=== PATIENT | female | born 1955 | race Caucasian/White ===

== ENCOUNTER 2019-01-21 13:54 | Emergency (ER) | payer BC ==
[~2019-01-21] VITALS: Ht 157.5 cm; Wt 62.6 kg
--- NOTE | 2019-01-21 13:58 | NUR ---
Irma murphy in [facility] - 01/21/19 at 1639 by [email or web address] MD AT BEDSIDE.
[2019-01-21] MEDS ORDERED: NACL 0.9% 1,000 ML IV ONE (13:59)
--- NOTE | 2019-01-21 13:59 | NUR ---
Patient to ER bed 5 to gown for evaluation. Side rails up. Report given to Keven FLOWER.
[2019-01-21 14:00] VITALS: BP_SYST 138
[2019-01-21] MEDS ORDERED: ONDANSETRON HCL 4 MG/2 ML VIAL IVP ONE (14:00)
[2019-01-21] MEDS ORDERED: KETOROLAC TROMETHAMINE 30 MG VIAL IVP ONE (14:00)
--- NOTE | 2019-01-21 14:01 | NUR ---
PATIENT REFUSED MEDICATION. PATIENT STATED "I CANT HAVE ANY MEDICATION BECAUSE IM ".
--- NOTE | 2019-01-21 14:10 | NUR ---
RECEIVED PATIENT REPORT FROM CHARGE NURSE BELLE. PATIENT IN ER BED 5. PATIENT IS AAOX4. PATIENT IS VERBALLY RESPONSIVE. PATIENT STATED THAT THE REASON WHY SHE CAME INTO THE ER IS BECAUSE "I WAS HAVING CONTRACTIONS. I AM WAY PASS DUE ON MY DUE DATE." PATIENT DENIES ANY PAST MEDICAL HISTORY. NO KNOWN ALLERGIES. CONTINUE TO MONITOR.
[2019-01-21 14:19] LABS: BASOPHILS % (AUTO) 0.5 % (0.0-2.0); EOSINOPHILS # (AUTO) 0.1 K/uL (0.0-0.4); EOSINOPHILS % (AUTO) 0.8 % (0.0-4.0); HEMATOCRIT 38.1 % (36-48); HEMOGLOBIN 12.9 g/dL (12.0-16.0); LYMPHOCYTES # (AUTO) 1.6 K/uL (1.0-5.5); LYMPHOCYTES % (AUTO) 24.4 % (20.5-51.5); MEAN CORPUSCULAR HEMOGLOBIN 29 pg (27-31); MEAN CORPUSCULAR HGB CONC 34 % (32-36); MEAN CORPUSCULAR VOLUME 85 fL (79.0-98.0); MONOCYTES # (AUTO) 0.5 K/uL (0.0-1.0); MONOCYTES % (AUTO) 7.7 % (1.7-9.3); NEUTROPHILS # (AUTO) 4.4 K/uL (1.8-7.7); NEUTROPHILS % (AUTO) 66.6 % (40.0-70.0); PLATELET COUNT (AUTO) 315 K/uL (130-430); RED BLOOD CELL COUNT(AUTO) 4.48 MIL/uL (4.2-6.2); RED CELL DISTRIBUTION WIDTH 13.6 % (9.0-15.0); WHITE BLOOD COUNT (AUTO) 6.7 K/uL (4.8-10.8)
[2019-01-21 14:31] LABS: CREATININE 0.63 mg/dL (0.55-1.30); POTASSIUM 3.9 mmol/L (3.5-5.1)
[2019-01-21 14:36] LABS: ALBUMIN 3.5 g/dL (3.4-4.8); TOTAL BILIRUBIN 0.8 mg/dL (0.0-1.0)
[2019-01-21 14:58] LABS: BILIRUBIN,URINE NEGATIVE (NEGATIVE); BLOOD, URINE NEGATIVE (NEGATIVE); CLARITY/URINE CLEAR (CLEAR); COLOR,URINE YELLOW (YELLOW); GLUCOSE,URINE 3+ (NEGATIVE); KETONES,URINE NEGATIVE (NEGATIVE); LEUKOCYTE ESTERASE ,URINE NEGATIVE (NEGATIVE); NITRITE, URINE NEGATIVE (NEGATIVE); PROTEIN URINE NEGATIVE (NEGATIVE); UROBILINOGEN,URINE 0.2 (0.2-1.0)
--- NOTE | 2019-01-21 16:02 | NUR ---
Late entry IVF were discontinued at this time. Addendum: 02/14/19 at 1118 by SDEDSTC IVF d/c's @ 1129
--- NOTE | 2019-01-21 16:02 | NUR ---
Patient elected to leave the ER without having formal arrangements for homeless alf in place. Patient wished to get her cat from the [facility] before they took it to a alf. I attempted to arrange for her to go to a alf by calling: [facility], [facility], [facility], [facility], [facility], [facility], [facility]; none of the facilities picked up the phone or have information stating that they will accept the patient blindly. Patient did not wait for clothing, food, or taxi however she stated that she would be outside with her cat. Addendum: 01/21/19 at 1613 by RESHMA IV DC with cath intact.
== END 2019-01-21 16:10 | disposition home or self-care (01) ==
LOC: SED 13:54
DX: K29.70 Gastritis, unspecified, without bleeding (principal); R73.9 Hyperglycemia, unspecified; R03.0 Elevated blood-pressure reading, without diagnosis of hypertension; Z86.59 Personal history of other mental and behavioral disorders
CPT/HCPCS: 36415; 80053; 81003; 81025; 82150; 83690; 85025; 96360; 99283; J7030

== ENCOUNTER 2019-08-26 11:29 | Emergency (ER) | payer BC ==
[~2019-08-26] VITALS: Ht 152.4 cm; Wt 74.8 kg
[2019-08-26 11:29] VITALS: BP_SYST 153
--- NOTE | 2019-08-26 11:50 | NUR ---
Patient to ER bed 4 to gown for evaluation. Side rails up. Report given to MUNDO Salgado.
--- NOTE | 2019-08-26 12:00 | NUR ---
ER at bedside examining patient.
--- NOTE | 2019-08-26 12:40 | NUR ---
Patient taken to ultrasound via wheelchair.
--- NOTE | 2019-08-26 13:03 | NUR ---
Patient urine collected, urine dip performed. Patient has urine glucose of >1000mg/dl. MD Real made aware. Went to ultrasound for exam. Finger stick blood sugar refused by patient. MD aware. While in ultrasound, patient was arguing with spd tech stating she was not ultrasounding up high enough on abdomen, that her babies are in the upper quadrants of abdomen, and she has been over one year. Patient getting increasingly agitated and refusing transvaginal ultrasound. Patient keeps repeating that she has multiple babies and they are higher. "I will go to a stave log cut off saw operator to find out about my ."
[2019-08-26 13:31] VITALS: BP_SYST 153
[2019-08-26 13:35] LABS: BILIRUBIN,URINE NEGATIVE (NEGATIVE); BLOOD, URINE NEGATIVE (NEGATIVE); CLARITY/URINE CLEAR (CLEAR); COLOR,URINE YELLOW (YELLOW); GLUCOSE,URINE 3+ (NEGATIVE); KETONES,URINE NEGATIVE (NEGATIVE); LEUKOCYTE ESTERASE ,URINE NEGATIVE (NEGATIVE); NITRITE, URINE NEGATIVE (NEGATIVE); PROTEIN URINE TRACE (NEGATIVE); UROBILINOGEN,URINE 0.2 (0.2-1.0)
[2019-08-26 13:55] LABS: BACTERIA,URINE RARE /HPF (None Seen); MUCUS,URINE 1+ /LPF (None Seen); RBC,URINE 0-3 /HPF (0-3); WBC,URINE 0-3 /HPF (0-3)
--- NOTE | 2019-08-29 13:31 | NUR ---
Patient given written and verbal discharge instructions and verbalizes understanding. ER MD discussed with patient the results and treatment provided. Patient in stable condition. ID arm band removed. NO Rx given. Patient educated on pain management and to follow up with PMD. Pain Scale 0. Opportunity for questions provided and answered. Medication side effect fact sheet provided.
== END 2019-08-26 13:31 | disposition still patient (30) ==
LOC: SED 11:29
DX: E11.9 Type 2 diabetes mellitus without complications (principal); Z32.02 Encounter for pregnancy test, result negative
CPT/HCPCS: 36415; 76801; 76817; 81000-TC; 81025; 84703; 99284

== ENCOUNTER 2021-03-22 23:44 | Emergency (ER) | payer BC ==
[~2021-03-22] VITALS: Ht 157.5 cm; Wt 74.8 kg
[2021-03-22 23:44] VITALS: BP_SYST 214
--- NOTE | 2021-03-22 23:44 | NUR ---
Received patient to ER via BLS ambulance w/ c/o low back pain. patient denies any pmh but is ranting that she is 3 years and that on [place] she is 45 years old. Patient resting quietly. No acute distress noted. Vital signs are not within normal range. Pupils equal and reactive to light bilaterally. No facial droop noted. No smile deficit noted. Speech normal for patient. Patient is alert and oriented to person, place, time. Bilateral hand ink blender equal. Bilateral foot push equal.
[2021-03-23] MEDS ORDERED: LORazepam 2 MG/ML VIAL IM ONE (00:45)
[2021-03-23] MEDS ORDERED: HALOPERIDOL LACTATE 5 MG/ML VIAL IM ONE (00:45)
[2021-03-23 01:07] LABS: BILIRUBIN,URINE NEGATIVE (NEGATIVE); CLARITY/URINE CLEAR (CLEAR); COLOR,URINE YELLOW (YELLOW); GLUCOSE,URINE 3+ (NEGATIVE); KETONES,URINE NEGATIVE (NEGATIVE); LEUKOCYTE ESTERASE ,URINE NEGATIVE (NEGATIVE); NITRITE, URINE NEGATIVE (NEGATIVE); PROTEIN URINE 2+ (NEGATIVE); UROBILINOGEN,URINE 0.2 (0.2-1.0)
[2021-03-23 01:15] LABS: BLOOD, URINE TRACE (NEGATIVE)
[2021-03-23 01:17] LABS: BACTERIA,URINE MANY /HPF (None Seen)
[2021-03-23 01:19] LABS: BARBITURATE, URINE NEGATIVE (NEG <=200); BENZODIAZEPINE, URINE NEGATIVE (NEG <=150); CANNABINOID, URINE NEGATIVE (NEG <=50); COCAINE, URINE NEGATIVE (NEG <=150); METHAMPHETAMINES SCREEN,URINE NEGATIVE (NEG <=500); OPIATE, URINE NEGATIVE (NEG <=100); PHENCYCLIDINE SCREEN,URINE NEGATIVE (NEG <=25); UR TRICYCLIC ANTIDEPRESSANTS NEGATIVE (NEG <=300); URINE AMPHETAMINE NEGATIVE (NEG <=500); URINE METHADONE NEGATIVE (NEG <=200); URINE OXYCODONE SCREEN NEGATIVE (NEG <=100); URINE PROPOXYPHENE SCREEN NEGATIVE (NEG <=300)
--- NOTE | 2021-03-23 01:26 | NUR ---
Pupils equal and reactive to light bilaterally. No facial droop noted. No smile deficit noted. Speech normal for patient. Patient is alert and oriented to person, place, time. Bilateral hand security expert equal. Bilateral foot push equal. b/p noted at 172/70. Patient is alert/oriented, No SI or HI, has a place to stay, refused Ativan and Haldol medications. patient also refused blood draw. Is only requesting motrin for pain. MD Walker at bedside to speak w/ patient. Ok to hold medications at this time.
[2021-03-23] MEDS ORDERED: CIPROFLOXACIN HCL 500 MG TABLET PO ONE (01:45)
[2021-03-23] MEDS ORDERED: IBUPROFEN 600 MG TABLET PO ONE (01:45)
--- NOTE | 2021-03-23 01:51 | NUR ---
Medicated w/ cipro and ibuprofen per MD orders. Will cont to monitor and observe for any adverse reaction. Bed to low position sr up. continue to monitor.
--- NOTE | 2021-03-23 02:24 | NUR ---
Patient transported to radiology via w/c, accompanied by farm technician.
--- NOTE | 2021-03-23 02:53 | NUR ---
Urine HCG done, results negative lot: [id number]
[2021-03-23] MEDS ORDERED: ACET1TAB23 PO (02:55)
[2021-03-23] MEDS ORDERED: CYCL-10 PO (02:55)
[2021-03-23] MEDS ORDERED: CIPR500T5 PO (02:55)
[2021-03-23 03:11] VITALS: BP_SYST 169
--- NOTE | 2021-03-23 03:11 | NUR ---
Patient given written and verbal discharge instructions and verbalizes understanding. ER MD discussed with patient the results and treatment provided. Patient in stable condition. ID arm band removed. Rx of cipro and flexeril given. Patient educated on pain management and to follow up with PMD. Pain Scale 4. Opportunity for questions provided and answered. Medication side effect fact sheet provided.
== END 2021-03-23 03:11 | disposition home or self-care (01) ==
LOC: SED 23:44
DX: N39.0 Urinary tract infection, site not specified (principal); F28 Other psychotic disorder not due to a substance or known physiological condition; Z79.899 Other long term (current) drug therapy; Z20.822 Contact with and (suspected) exposure to COVID-19
CPT/HCPCS: 36415; 72100; 80307; 81000; 81025; 87086; 87426; 93005; 99285; J1630; J2060

== ENCOUNTER 2022-04-11 20:12 | Emergency (ER) | payer MEDICARE, BC ==
[~2022-04-11] VITALS: Ht 160 cm; Wt 63.5 kg
[~2022-04-11 20:12] MED LIST: CIPR500T5 PO; CYCL10TA24 PO
[2022-04-11 20:17] VITALS: BP_SYST 172
[2022-04-11] MEDS ORDERED: AMOX-423 PO (23:26)
[2022-04-11] MEDS ORDERED: HYDROcodone/ACETAMIN 10-325 MG TAB PO ONE (23:30)
--- NOTE | 2022-04-11 23:39 | NUR ---
Patient given written and verbal discharge instructions and verbalizes understanding. ER MD discussed with patient the results and treatment provided. Patient in stable condition. ID arm band removed. IV catheter removed intact and dressing applied, no active bleeding. Rx of AUGMENTIN given. Patient educated on pain management and to follow up with PMD. Pain Scale . Opportunity for questions provided and answered. Medication side effect fact sheet provided.
== END 2022-04-11 23:38 | disposition home or self-care (01) ==
LOC: SED 20:12
DX: M54.50 Low back pain, unspecified (principal); G89.29 Other chronic pain; J06.9 Acute upper respiratory infection, unspecified; R03.0 Elevated blood-pressure reading, without diagnosis of hypertension; Z79.899 Other long term (current) drug therapy
CPT/HCPCS: 99283

== ENCOUNTER 2022-05-15 19:32 | Emergency (ER) | payer MEDICARE, BC ==
[~2022-05-15] VITALS: Ht 160 cm; Wt 81.6 kg
[~2022-05-15 19:32] MED LIST changes: +AMOX-423 PO
[2022-05-15 19:55] VITALS: BP_SYST 158
--- NOTE | 2022-05-15 19:58 | NUR ---
PER PATIENT, SHE IS WITH UNKNOWN LMP. STATES SHE HAS ABDOMINAL PAIN WITH N/V X4 DAYS. PATIENT IS A TRANSIENT THAT WAS PICKED UP AT [facility]AL [facility]. PATIENT EXTREMELY AGITATED WHEN ASKED ABOUT POTENTIAL AND LMP. PATIENT PLACED IN ROOM 7 AN RECIEVED REPORT FROM BLS. DR. ROSS AT BEDSIDE.
--- NOTE | 2022-05-15 20:21 | NUR ---
MUNDO ESTRELLA UA COLLECTED AND SENT TO LAB
--- NOTE | 2022-05-15 20:29 | NUR ---
DR. ROSS AT BEDSIDE EXAM/ EVAL
[2022-05-15] MEDS ORDERED: MAG HYDROX/AL HYDROX/SIMETH 30 ML, LIDOCAINE VISCOUS 2% 15ML (PO) 15 ML, DICYCLOMINE HC... PO ONE ×3 (20:30)
--- NOTE | 2022-05-15 20:35 | NUR ---
Patient resting comfortably in bed with side rails raised. Patient eating lunch box at bedside. Nad noted at this time.
[2022-05-15 20:44] LABS: BLOOD, URINE 1+ (NEGATIVE); COLOR,URINE YELLOW (YELLOW); GLUCOSE,URINE 2+ (NEGATIVE); KETONES,URINE TRACE (NEGATIVE); LEUKOCYTE ESTERASE ,URINE 1+ (NEGATIVE); NITRITE, URINE NEGATIVE (NEGATIVE); PROTEIN URINE 3+ (NEGATIVE); UROBILINOGEN,URINE 0.2 (0.2-1.0)
[2022-05-15] MEDS ORDERED: ONDANSETRON 4 MG ODT TAB PO ONE (20:45)
[2022-05-15] MEDS ORDERED: IBUPROFEN 600 MG TABLET PO ONE (20:45)
[2022-05-15 20:53] LABS: CLARITY/URINE HAZY (CLEAR)
[2022-05-15 20:54] LABS: BILIRUBIN,URINE 1+ (NEGATIVE)
[2022-05-15 20:55] LABS: BACTERIA,URINE FEW /HPF (None Seen); MUCUS,URINE None Seen /LPF (None Seen)
[2022-05-15 20:56] LABS: BARBITURATE, URINE NEGATIVE (NEG <=200); BENZODIAZEPINE, URINE NEGATIVE (NEG <=150); CANNABINOID, URINE NEGATIVE (NEG <=50); COCAINE, URINE NEGATIVE (NEG <=150); METHAMPHETAMINES SCREEN,URINE NEGATIVE (NEG <=500); OPIATE, URINE NEGATIVE (NEG <=100); PHENCYCLIDINE SCREEN,URINE NEGATIVE (NEG <=25); UR TRICYCLIC ANTIDEPRESSANTS NEGATIVE (NEG <=300); URINE AMPHETAMINE NEGATIVE (NEG <=500); URINE METHADONE NEGATIVE (NEG <=200); URINE OXYCODONE SCREEN NEGATIVE (NEG <=100); URINE PROPOXYPHENE SCREEN NEGATIVE (NEG <=300)
[2022-05-15 21:23] LABS: BASOPHILS % (AUTO) 0.3 % (0.0-2.0); EOSINOPHILS # (AUTO) 0.2 K/uL (0.0-0.4); EOSINOPHILS % (AUTO) 1.6 % (0.0-4.0); HEMATOCRIT 30.5 % (36-48); HEMOGLOBIN 10.3 g/dL (12.0-16.0); LYMPHOCYTES # (AUTO) 2.1 K/uL (1.0-5.5); LYMPHOCYTES % (AUTO) 17.1 % (20.5-51.5); MEAN CORPUSCULAR HEMOGLOBIN 27 pg (27-31); MEAN CORPUSCULAR HGB CONC 34 % (32-36); MEAN CORPUSCULAR VOLUME 81 fL (79.0-98.0); MONOCYTES # (AUTO) 1.2 K/uL (0.0-1.0); MONOCYTES % (AUTO) 9.4 % (1.7-9.3); NEUTROPHILS # (AUTO) 8.8 K/uL (1.8-7.7); NEUTROPHILS % (AUTO) 71.6 % (40.0-70.0); PLATELET COUNT (AUTO) 436 K/uL (130-430); RED BLOOD CELL COUNT(AUTO) 3.79 MIL/uL (4.2-6.2); RED CELL DISTRIBUTION WIDTH 13.8 % (9.0-15.0); WHITE BLOOD COUNT (AUTO) 12.3 K/uL (4.8-10.8)
[2022-05-15 21:34] LABS: CALCIUM 8.3 mg/dL (8.4-11.0); CREATININE 2.35 mg/dL (0.55-1.30); POTASSIUM 3.7 mmol/L (3.5-5.1)
[2022-05-15 21:42] LABS: ALBUMIN 2.5 g/dL (3.4-4.8); TOTAL BILIRUBIN 0.3 mg/dL (0.0-1.0)
[2022-05-15] MEDS ORDERED: CEPH-548 PO (21:53)
--- NOTE | 2022-05-15 22:20 | NUR ---
Patient given written and verbal discharge instructions and verbalizes understanding. ER MD discussed with patient the results and treatment provided. Patient in stable condition. ID arm band removed. Patient educated on pain management and to follow up with PMD. Pain Scale 0/10. Opportunity for questions provided and answered. Medication side effect fact sheet provided.
--- NOTE | 2022-05-15 22:25 | NUR ---
PT STABLE FOR D/C TO HOME. 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 PT ASKED FOR TAXI TO GO BACK TO THE [facility] WHERE SHE LIVES. CHARGE NURSE MUNDO NEVILLE NOTIFIED. WILL, CHIEF INSPECTOR CALLED FOR TAXI VOUCHER. PT AMB TO LOBBY WITH ALL HER BELONGINGS AND [employer] PAPERWORK.
[2022-05-15 22:44] VITALS: BP_SYST 152
== END 2022-05-15 22:44 | disposition home or self-care (01) ==
LOC: SED 19:32
DX: R10.84 Generalized abdominal pain (principal); N18.9 Chronic kidney disease, unspecified; N39.0 Urinary tract infection, site not specified; R11.2 Nausea with vomiting, unspecified; R19.7 Diarrhea, unspecified; Z79.899 Other long term (current) drug therapy
CPT/HCPCS: 99283; 80307; 80053; 85025; 36415; 81025; 81000; Q0162

== ENCOUNTER 2022-05-18 17:41 | Inpatient (IN) | payer BC, MEDICARE ==
[~2022-05-18] VITALS: Ht 157.5 cm; Wt 56.7 kg
[~2022-05-18 17:41] MED LIST changes: +CEPH-548 PO
[2022-05-18 19:04] LABS: BASOPHILS # (AUTO) 0.1 K/uL (0.0-0.2); BASOPHILS % (AUTO) 0.5 % (0.0-2.0); EOSINOPHILS # (AUTO) 0.3 K/uL (0.0-0.4); EOSINOPHILS % (AUTO) 1.5 % (0.0-4.0); HEMATOCRIT 32.5 % (36-48); HEMOGLOBIN 10.9 g/dL (12.0-16.0); LYMPHOCYTES # (AUTO) 2.1 K/uL (1.0-5.5); LYMPHOCYTES % (AUTO) 12.4 % (20.5-51.5); MEAN CORPUSCULAR HEMOGLOBIN 27 pg (27-31); MEAN CORPUSCULAR HGB CONC 33 % (32-36); MEAN CORPUSCULAR VOLUME 80 fL (79.0-98.0); MONOCYTES # (AUTO) 1.5 K/uL (0.0-1.0); MONOCYTES % (AUTO) 8.6 % (1.7-9.3); PLATELET COUNT (AUTO) 516 K/uL (130-430); RED BLOOD CELL COUNT(AUTO) 4.04 MIL/uL (4.2-6.2); RED CELL DISTRIBUTION WIDTH 13.7 % (9.0-15.0); WHITE BLOOD COUNT (AUTO) 16.9 K/uL (4.8-10.8)
[2022-05-18 19:24] LABS: CALCIUM 8.4 mg/dL (8.4-11.0); CREATININE 1.9 mg/dL (0.55-1.30); POTASSIUM 3.4 mmol/L (3.5-5.1)
[2022-05-18 19:37] LABS: ALBUMIN 2.7 g/dL (3.4-4.8); TOTAL BILIRUBIN 0.4 mg/dL (0.0-1.0)
[2022-05-18] MEDS ORDERED: cefTRIAXone 1 GM in LIDOCAINE 1%, 20 ML MDV 2.1 ML IM ONE (21:15)
[2022-05-18] MEDS: NACL 0.9% 1,000 ML IV SCH (22:30)
[2022-05-18] MEDS ORDERED: HYDROcodone/ACETAMIN 5-325 MG TAB (NORCO/ VICODIN) PO PRN (22:30)
[2022-05-18] MEDS ORDERED: cefTRIAXone 1 GM IVPB PREMIX 0 ML IV ONE (22:50)
[2022-05-18] MEDS ORDERED: HALOPERIDOL LACTATE 5 MG/ML VIAL ONE (23:11)
[2022-05-18] MEDS ORDERED: OLANZapine IntraMuscular 10 MG VIAL (FOR I.M. INJECTION ONLY) IM ONE (23:15)
[2022-05-18] MEDS ORDERED: HALOPERIDOL LACTATE 5 MG/ML VIAL IM ONE (23:15)
[2022-05-19] MEDS ORDERED: DIPHENHYDRAMINE INJ 50 MG/ML VIAL IVP ONE
[2022-05-19] MEDS ORDERED: HYDROcodone/ACETAMIN 7.5-325 MG TAB PO PRN (00:45)
[2022-05-19] MEDS ORDERED: ACETAMINOPHEN 500 MG TABLET PO PRN (00:45)
[2022-05-19] MEDS ORDERED: ONDANSETRON HCL 4 MG/2 ML VIAL IVP PRN (00:45)
[2022-05-19] MEDS ORDERED: ZOLPIDEM TARTRATE 5 MG TABLET PO PRN (00:45)
[2022-05-19] MEDS ORDERED: DOCUSATE SODIUM 100 MG/10 ML UDC PO PRN (00:45)
[2022-05-19] MEDS ORDERED: guaiFENesin/DEXTROMETHORPHAN 10 ML UDC PO PRN (00:45)
[2022-05-19] MEDS ORDERED: DEXTROSE 50% JECT 50 ML DISP.SYRIN IVP PRN (01:00)
[2022-05-19] MEDS ORDERED: D5W 1,000 ML IV PRN (01:00)
[2022-05-19] MEDS ORDERED: GLUCOSE (DEXTROSE) ORAL GEL -Adults PO PRN (01:00)
[2022-05-19] MEDS ORDERED: cefTRIAXone 1 GM VIAL ONE (01:34)
[2022-05-19] MEDS ORDERED: LIDOCAINE 1%, 20 ML MDV 20 ML ONE (01:36)
[2022-05-19 06:30] LABS: PROTHROMBIN TIME 10.4 SECS (9.5-12.5)
[2022-05-19] MEDS: NACL 0.9% 1,000 ML IV SCH ×3 (06:34→21:49)
[2022-05-19] MEDS: INSULIN LISPRO SLIDING SCALE 100 UNITS/ML VIAL (humaLOG) SUBCUT PRN ×4 (07:04→21:47)
[2022-05-19 07:29] LABS: FREE T4 (FREE THYROXINE) 1.3 ng/dl (0.8-1.5); PHOSPHORUS 4.1 mg/dL (2.7-4.5); THYROID STIMULATING HORMONE 1.14 uIu/mL (0.36-3.74)
[2022-05-19 08:00] VITALS: BP_SYST 153
[2022-05-19] MEDS: PANTOPRAZOLE SODIUM 40 MG TAB PO SCH (08:28)
[2022-05-19 10:53] LABS: BARBITURATE, URINE NEGATIVE (NEG <=200)
[2022-05-19 10:54] LABS: BENZODIAZEPINE, URINE NEGATIVE (NEG <=150); CANNABINOID, URINE NEGATIVE (NEG <=50); COCAINE, URINE NEGATIVE (NEG <=150); METHAMPHETAMINES SCREEN,URINE NEGATIVE (NEG <=500); OPIATE, URINE NEGATIVE (NEG <=100); PHENCYCLIDINE SCREEN,URINE NEGATIVE (NEG <=25); UR TRICYCLIC ANTIDEPRESSANTS NEGATIVE (NEG <=300); URINE AMPHETAMINE NEGATIVE (NEG <=500); URINE METHADONE NEGATIVE (NEG <=200); URINE OXYCODONE SCREEN NEGATIVE (NEG <=100); URINE PROPOXYPHENE SCREEN NEGATIVE (NEG <=300)
[2022-05-19 12:00] VITALS: BP_SYST 154
[2022-05-19 16:00] VITALS: BP_SYST 164
[2022-05-19] MEDS ORDERED: lisinopriL 20 MG TABLET PO ONE (17:30)
[2022-05-19] MEDS: BISMUTH SUBSALICYLATE 240 ML BOTTLE PO PRN (17:40)
[2022-05-19 23:32] VITALS: BP_SYST 145
[2022-05-20] MEDS: NACL 0.9% 1,000 ML IV SCH ×3 (06:04→22:30)
[2022-05-20 06:45] LABS: BASOPHILS # (AUTO) 0.1 K/uL (0.0-0.2); BASOPHILS % (AUTO) 0.5 % (0.0-2.0); EOSINOPHILS # (AUTO) 0.3 K/uL (0.0-0.4); EOSINOPHILS % (AUTO) 1.9 % (0.0-4.0); HEMATOCRIT 26.6 % (36-48); HEMOGLOBIN 9.3 g/dL (12.0-16.0); LYMPHOCYTES % (AUTO) 13.9 % (20.5-51.5); MEAN CORPUSCULAR HEMOGLOBIN 28 pg (27-31); MEAN CORPUSCULAR HGB CONC 35 % (32-36); MEAN CORPUSCULAR VOLUME 80 fL (79.0-98.0); MONOCYTES # (AUTO) 1.2 K/uL (0.0-1.0); MONOCYTES % (AUTO) 7.9 % (1.7-9.3); NEUTROPHILS # (AUTO) 11.1 K/uL (1.8-7.7); NEUTROPHILS % (AUTO) 75.8 % (40.0-70.0); PLATELET COUNT (AUTO) 393 K/uL (130-430); RED BLOOD CELL COUNT(AUTO) 3.31 MIL/uL (4.2-6.2); RED CELL DISTRIBUTION WIDTH 13.9 % (9.0-15.0); WHITE BLOOD COUNT (AUTO) 14.6 K/uL (4.8-10.8)
[2022-05-20 07:04] LABS: CALCIUM 7.8 mg/dL (8.4-11.0); CREATININE 1.23 mg/dL (0.55-1.30); POTASSIUM 3.6 mmol/L (3.5-5.1)
[2022-05-20] MEDS ORDERED: DIATR MEGLU/DIATRIZ SOD 30 ML SOLUTION PO ONE (07:52)
[2022-05-20] MEDS ORDERED: POTASSIUM CHLORIDE 20 MEQ TAB.PRT.SR PO PRN (09:00)
[2022-05-20] MEDS: PANTOPRAZOLE SODIUM 40 MG TAB PO SCH ×2 (09:00→10:00)
[2022-05-20] MEDS ORDERED: cefTRIAXone 1 GM IVPB PREMIX 50 ML IV SCH (10:00)
[2022-05-20] MEDS: lisinopriL 20 MG TABLET PO SCH (10:00)
[2022-05-20] MEDS: BISMUTH SUBSALICYLATE 240 ML BOTTLE PO PRN ×2 (12:11→22:34)
[2022-05-20] MEDS: INSULIN LISPRO SLIDING SCALE 100 UNITS/ML VIAL (humaLOG) SUBCUT PRN ×2 (12:12→18:40)
[2022-05-20 16:00] VITALS: BP_SYST 164
[2022-05-21 03:37] LABS: CALCIUM 7.7 mg/dL (8.4-11.0); CREATININE 0.99 mg/dL (0.55-1.30); POTASSIUM 3.8 mmol/L (3.5-5.1)
[2022-05-21 04:21] LABS: BASOPHILS # (AUTO) 0.1 K/uL (0.0-0.2); BASOPHILS % (AUTO) 0.4 % (0.0-2.0); EOSINOPHILS # (AUTO) 0.4 K/uL (0.0-0.4); EOSINOPHILS % (AUTO) 2.2 % (0.0-4.0); HEMATOCRIT 26.4 % (36-48); HEMOGLOBIN 9.1 g/dL (12.0-16.0); LYMPHOCYTES % (AUTO) 11.7 % (20.5-51.5); MEAN CORPUSCULAR HEMOGLOBIN 28 pg (27-31); MEAN CORPUSCULAR HGB CONC 35 % (32-36); MEAN CORPUSCULAR VOLUME 81 fL (79.0-98.0); MONOCYTES # (AUTO) 1.2 K/uL (0.0-1.0); MONOCYTES % (AUTO) 7.1 % (1.7-9.3); NEUTROPHILS # (AUTO) 13.1 K/uL (1.8-7.7); NEUTROPHILS % (AUTO) 78.6 % (40.0-70.0); PLATELET COUNT (AUTO) 406 K/uL (130-430); RED BLOOD CELL COUNT(AUTO) 3.27 MIL/uL (4.2-6.2); RED CELL DISTRIBUTION WIDTH 13.8 % (9.0-15.0); WHITE BLOOD COUNT (AUTO) 16.7 K/uL (4.8-10.8)
[2022-05-21] MEDS: NACL 0.9% 1,000 ML IV SCH ×3 (06:00→20:25)
[2022-05-21 08:08] VITALS: BP_SYST 169
[2022-05-21] MEDS: metroNIDAZOLE 500 mg/NS 100 ML IV SCH ×3 (08:45→21:22)
[2022-05-21] MEDS: PANTOPRAZOLE SODIUM 40 MG TAB PO SCH (08:59)
[2022-05-21] MEDS: lisinopriL 20 MG TABLET PO SCH (09:01)
[2022-05-21] MEDS ORDERED: DIPHENHYDRAMINE INJ 50 MG/ML VIAL IVP ONE (11:15)
[2022-05-21 12:00] VITALS: BP_SYST 156
[2022-05-21] MEDS: INSULIN LISPRO SLIDING SCALE 100 UNITS/ML VIAL (humaLOG) SUBCUT PRN ×2 (12:20→16:49)
[2022-05-21 16:51] VITALS: BP_SYST 155
[2022-05-21 20:00] VITALS: BP_SYST 182
[2022-05-22] VITALS: BP_SYST 166
[2022-05-22 04:00] VITALS: BP_SYST 158
[2022-05-22] MEDS: metroNIDAZOLE 500 mg/NS 100 ML IV SCH ×2 (06:00→06:30)
[2022-05-22] MEDS: NACL 0.9% 1,000 ML IV SCH ×2 (06:30→08:29)
[2022-05-22 06:57] LABS: BASOPHILS # (AUTO) 0.1 K/uL (0.0-0.2); BASOPHILS % (AUTO) 0.6 % (0.0-2.0); EOSINOPHILS # (AUTO) 0.2 K/uL (0.0-0.4); EOSINOPHILS % (AUTO) 1.7 % (0.0-4.0); HEMATOCRIT 29.3 % (36-48); HEMOGLOBIN 10.2 g/dL (12.0-16.0); LYMPHOCYTES # (AUTO) 1.8 K/uL (1.0-5.5); LYMPHOCYTES % (AUTO) 13.9 % (20.5-51.5); MEAN CORPUSCULAR HEMOGLOBIN 28 pg (27-31); MEAN CORPUSCULAR HGB CONC 35 % (32-36); MEAN CORPUSCULAR VOLUME 81 fL (79.0-98.0); MONOCYTES % (AUTO) 7.6 % (1.7-9.3); NEUTROPHILS # (AUTO) 9.9 K/uL (1.8-7.7); NEUTROPHILS % (AUTO) 76.2 % (40.0-70.0); PLATELET COUNT (AUTO) 458 K/uL (130-430); RED BLOOD CELL COUNT(AUTO) 3.63 MIL/uL (4.2-6.2); WHITE BLOOD COUNT (AUTO) 12.9 K/uL (4.8-10.8)
[2022-05-22 07:52] LABS: CALCIUM 7.9 mg/dL (8.4-11.0); CREATININE 0.85 mg/dL (0.55-1.30); POTASSIUM 3.7 mmol/L (3.5-5.1)
[2022-05-22 08:17] VITALS: BP_SYST 127; BP_SYST 167
[2022-05-22] MEDS: PANTOPRAZOLE SODIUM 40 MG TAB PO SCH (08:27)
[2022-05-22] MEDS: lisinopriL 20 MG TABLET PO SCH (08:28)
[2022-05-22] MEDS: INSULIN LISPRO SLIDING SCALE 100 UNITS/ML VIAL (humaLOG) SUBCUT PRN ×2 (11:24→21:00)
[2022-05-22] MEDS: PIPERACILLIN/TAZO 3.375/DEX-IS 50 ML IV SCH ×5 (12:00→23:24)
[2022-05-22 16:00] VITALS: BP_SYST 169
[2022-05-22 20:00] VITALS: BP_SYST 166
[2022-05-23] VITALS: BP_SYST 152
[2022-05-23 04:00] VITALS: BP_SYST 148
[2022-05-23] MEDS: PIPERACILLIN/TAZO 3.375/DEX-IS 50 ML IV SCH ×3 (06:00→18:00)
[2022-05-23 08:00] VITALS: BP_SYST 182
[2022-05-23] MEDS ORDERED: SULF1TAB48 PO (08:08)
[2022-05-23] MEDS: lisinopriL 20 MG TABLET PO SCH (08:35)
[2022-05-23] MEDS: SULFAMETHOXAZOLE/TRIMETHOPR DS 1 TABLET PO SCH ×2 (08:35→21:06)
[2022-05-23] MEDS: PANTOPRAZOLE SODIUM 40 MG TAB PO SCH (08:36)
[2022-05-23 12:00] VITALS: BP_SYST 177
[2022-05-23] MEDS ORDERED: hydrALAZINE HCL 20 MG/ML VIAL IVP PRN (13:45)
[2022-05-23] MEDS: IBUPROFEN 400 MG TABLET PO PRN (13:55)
[2022-05-23 16:18] VITALS: BP_SYST 146
[2022-05-23 20:00] VITALS: BP_SYST 158
[2022-05-23] MEDS: INSULIN LISPRO SLIDING SCALE 100 UNITS/ML VIAL (humaLOG) SUBCUT PRN (21:35)
[2022-05-24] VITALS: BP_SYST 148
[2022-05-24 04:00] VITALS: BP_SYST 150
[2022-05-24] MEDS: PIPERACILLIN/TAZO 3.375/DEX-IS 50 ML IV SCH ×4 (06:00→18:00)
[2022-05-24 07:40] VITALS: BP_SYST 174
[2022-05-24] MEDS: lisinopriL 20 MG TABLET PO SCH (08:37)
[2022-05-24] MEDS: PANTOPRAZOLE SODIUM 40 MG TAB PO SCH (08:37)
[2022-05-24] MEDS: SULFAMETHOXAZOLE/TRIMETHOPR DS 1 TABLET PO SCH ×2 (08:37→20:50)
[2022-05-24 12:00] VITALS: BP_SYST 148
[2022-05-24 19:00] VITALS: BP_SYST 147
[2022-05-24 20:00] VITALS: BP_SYST 147
[2022-05-24] MEDS: IBUPROFEN 400 MG TABLET PO PRN (20:53)
[2022-05-24] MEDS ORDERED: OLANZapine 5 MG TABLET PO SCH (21:00)
[2022-05-25 04:00] VITALS: BP_SYST 149
[2022-05-25] MEDS: PIPERACILLIN/TAZO 3.375/DEX-IS 50 ML IV SCH ×2 (06:00)
[2022-05-25] MEDS: PANTOPRAZOLE SODIUM 40 MG TAB PO SCH (09:00)
[2022-05-25] MEDS: lisinopriL 20 MG TABLET PO SCH (09:00)
[2022-05-25] MEDS ORDERED: SULFAMETHOXAZOLE/TRIMETHOPR DS 1 TABLET PO ONE (09:30)
[2022-05-25] MEDS ORDERED: OLANZapine 10 MG TABLET PO ONE (11:00)
[2022-05-25 16:00] VITALS: BP_SYST 137
[2022-05-25 20:00] VITALS: BP_SYST 145
[2022-05-25] MEDS: SULFAMETHOXAZOLE/TRIMETHOPR DS 1 TABLET PO SCH (21:59)
[2022-05-25] MEDS: INSULIN LISPRO SLIDING SCALE 100 UNITS/ML VIAL (humaLOG) SUBCUT PRN (22:08)
[2022-05-26 08:06] VITALS: BP_SYST 156
[2022-05-26] MEDS: SULFAMETHOXAZOLE/TRIMETHOPR DS 1 TABLET PO SCH ×2 (08:18→20:34)
[2022-05-26] MEDS ORDERED: HALOPERIDOL LACTATE 5 MG/ML VIAL IM PRN (08:45)
[2022-05-26] MEDS: OLANZapine 10 MG TABLET PO SCH (09:00)
[2022-05-26] MEDS: lisinopriL 20 MG TABLET PO SCH (09:00)
[2022-05-26] MEDS: PANTOPRAZOLE SODIUM 40 MG TAB PO SCH (09:00)
[2022-05-26 12:00] VITALS: BP_SYST 143
[2022-05-27] MEDS: lisinopriL 20 MG TABLET PO SCH (09:00)
[2022-05-27] MEDS: PANTOPRAZOLE SODIUM 40 MG TAB PO SCH (09:00)
[2022-05-27] MEDS: OLANZapine 10 MG TABLET PO SCH (09:00)
[2022-05-27] MEDS: SULFAMETHOXAZOLE/TRIMETHOPR DS 1 TABLET PO SCH ×2 (09:00→20:43)
[2022-05-27 09:01] VITALS: BP_SYST 141
[2022-05-27 20:05] VITALS: BP_SYST 145
[2022-05-28 08:05] VITALS: BP_SYST 179
[2022-05-28] MEDS: SULFAMETHOXAZOLE/TRIMETHOPR DS 1 TABLET PO SCH ×3 (08:55→21:00)
[2022-05-28] MEDS: OLANZapine 10 MG TABLET PO SCH ×2 (09:00→09:15)
[2022-05-28] MEDS: PANTOPRAZOLE SODIUM 40 MG TAB PO SCH (09:00)
[2022-05-28] MEDS ORDERED: ZOLPIDEM TARTRATE 5 MG TABLET PO PRN (09:15)
[2022-05-28] MEDS ORDERED: HYDROcodone/ACETAMIN 7.5-325 MG TAB PO PRN (09:15)
[2022-05-28] MEDS: lisinopriL 20 MG TABLET PO SCH (09:15)
[2022-05-28] MEDS ORDERED: HYDROcodone/ACETAMIN 5-325 MG TAB (NORCO/ VICODIN) PO PRN (09:15)
[2022-05-29 08:00] VITALS: BP_SYST 140
[2022-05-29] MEDS: OLANZapine 10 MG TABLET PO SCH (08:51)
[2022-05-29] MEDS: SULFAMETHOXAZOLE/TRIMETHOPR DS 1 TABLET PO SCH ×2 (08:52→21:00)
[2022-05-29] MEDS: PANTOPRAZOLE SODIUM 40 MG TAB PO SCH (08:52)
[2022-05-29] MEDS: lisinopriL 20 MG TABLET PO SCH (08:52)
[2022-05-29 20:00] VITALS: BP_SYST 180
[2022-05-30] MEDS: lisinopriL 20 MG TABLET PO SCH (09:00)
[2022-05-30] MEDS: PANTOPRAZOLE SODIUM 40 MG TAB PO SCH (09:00)
[2022-05-30] MEDS: SULFAMETHOXAZOLE/TRIMETHOPR DS 1 TABLET PO SCH ×2 (09:00→20:23)
[2022-05-30] MEDS: OLANZapine 10 MG TABLET PO SCH (09:00)
[2022-05-31] MEDS: IBUPROFEN 400 MG TABLET PO PRN ×3 (00:53→02:34)
[2022-05-31] MEDS: PANTOPRAZOLE SODIUM 40 MG TAB PO SCH (09:00)
[2022-05-31] MEDS: OLANZapine 10 MG TABLET PO SCH (09:00)
[2022-05-31] MEDS: lisinopriL 20 MG TABLET PO SCH (09:00)
[2022-05-31] MEDS: SULFAMETHOXAZOLE/TRIMETHOPR DS 1 TABLET PO SCH ×2 (10:09→22:17)
[2022-05-31 21:00] VITALS: BP_SYST 135
[2022-06-01] MEDS: lisinopriL 20 MG TABLET PO SCH (09:00)
[2022-06-01] MEDS: OLANZapine 10 MG TABLET PO SCH (09:00)
[2022-06-01] MEDS: PANTOPRAZOLE SODIUM 40 MG TAB PO SCH (09:00)
[2022-06-01] MEDS ORDERED: DIPHENHYDRAMINE HCL 25 MG CAPSULE ONE (23:52)
[2022-06-02] MEDS: DIPHENHYDRAMINE HCL 25 MG CAPSULE PO PRN ×2 (05:30→11:58)
[2022-06-02] MEDS: OLANZapine 10 MG TABLET PO SCH (09:00)
[2022-06-02] MEDS: lisinopriL 20 MG TABLET PO SCH (09:00)
[2022-06-02] MEDS: PANTOPRAZOLE SODIUM 40 MG TAB PO SCH (09:00)
[2022-06-02] MEDS ORDERED: ENOXAPARIN SODIUM 40 MG/0.4 ML SYRINGE SUBCUT ONE (09:15)
[2022-06-03] MEDS: PANTOPRAZOLE SODIUM 40 MG TAB PO SCH (09:00)
[2022-06-03] MEDS ORDERED: ENOXAPARIN SODIUM 40 MG/0.4 ML SYRINGE SUBCUT SCH (09:00)
[2022-06-03] MEDS ORDERED: OLANZapine 10 MG TAB.RAPDIS PO SCH (09:00)
[2022-06-03] MEDS: lisinopriL 20 MG TABLET PO SCH (09:00)
[2022-06-03] MEDS ORDERED: DIVALPROEX SODIUM 125 MG CAP.(DEPAKOTE SPRINKLE) PO SCH (21:00)
[2022-06-04] MEDS: IBUPROFEN 400 MG TABLET PO PRN (02:37)
[2022-06-04] MEDS: DIPHENHYDRAMINE HCL 25 MG CAPSULE PO PRN (08:53)
[2022-06-04] MEDS ORDERED: DIPHENHYDRAMINE HCL 25 MG CAPSULE PO ONE (09:15)
[2022-06-04] MEDS ORDERED: DIPHENHYDRAMINE HCL 50 MG CAPSULE PO ONE (09:15)
[2022-06-04] MEDS ORDERED: metFORMIN HCL 500 MG TABLET PO SCH (18:00)
== END 2022-06-04 15:00 | DRG 720 ==
LOC: SED 17:41 → SMU 22:23
PROVIDERS: ADMIT Family Medicine; ATTEND Family Medicine
DX: A41.9 Sepsis, unspecified organism (principal); N17.0 Acute kidney failure with tubular necrosis; G93.41 Metabolic encephalopathy; U07.1 COVID-19; E43 Unspecified severe protein-calorie malnutrition; S32.019A Unspecified fracture of first lumbar vertebra, initial encounter for closed fracture; E86.0 Dehydration; N39.0 Urinary tract infection, site not specified; E87.1 Hypo-osmolality and hyponatremia; X58.XXXA Exposure to other specified factors, initial encounter; K29.70 Gastritis, unspecified, without bleeding; E78.2 Mixed hyperlipidemia; E87.6 Hypokalemia; N18.9 Chronic kidney disease, unspecified; N28.1 Cyst of kidney, acquired; F29 Unspecified psychosis not due to a substance or known physiological condition; F20.9 Schizophrenia, unspecified; I70.90 Unspecified atherosclerosis; Z91.14 Patient's other noncompliance with medication regimen; Z59.00 Homelessness unspecified; Y93.89 Activity, other specified; Y92.89 Other specified places as the place of occurrence of the external cause; Y99.9 Unspecified external cause status; Z68.22 Body mass index [BMI] 22.0-22.9, adult; K52.9 Noninfective gastroenteritis and colitis, unspecified
CPT/HCPCS: 36415; 71045; 76376; 76770; 80048; 80053; 80061; 80307; 82150; 82962; 83036; 83605; 83690; 83735; 83880; 84100; 84439; 84443; 85025; 85610-TC; 85730-TC; 86140; 87086; 89055; 96372; 97116-GP; 97530-GP; 99285; J0360; J0696; J1200; J1630; J1956; J2001; J2543; J3490; Q0163; Q9964; U0003